=== PATIENT | male | born 1995 | race African-American/Black ===

== ENCOUNTER 2020-01-17 01:53 | Emergency (ER) | payer MEDICAID, OTHER ==
[~2020-01-17] VITALS: Ht 165.1 cm; Wt 81.6 kg
== END 2020-01-17 02:37 ==
LOC: ER 01:53
DX: Z02.89 Encounter for other administrative examinations (principal)

== ENCOUNTER 2024-01-17 14:55 | Emergency (ER) | payer OTHER ==
[~2024-01-17] VITALS: Ht 180.3 cm; Wt 75.0 kg
[2024-01-17 19:38] VITALS: BP 134/81
[2024-01-17 19:39] VITALS: PULSE 103; RESP 18; O2SAT 99
== END 2024-01-17 19:43 | disposition home or self-care (01) ==
LOC: ER 14:58
DX: S60.212A Contusion of left wrist, initial encounter (principal); R04.0 Epistaxis; V89.2XXA Person injured in unspecified motor-vehicle accident, traffic, initial encounter; Y93.89 Activity, other specified; Y92.89 Other specified places as the place of occurrence of the external cause; Y99.8 Other external cause status
CPT/HCPCS: 70450; 71250; 72125; 73110; 74176